=== PATIENT | male | born 1970 | race Caucasian/White ===

== ENCOUNTER 2018-07-09 07:59 | Outpatient (CLI) | payer BC ==
--- NOTE | 2018-07-09 09:25 | ULT ---
HEPATIC ULTRASOUND WITH DOPPLER: Date: 07/09/18 HISTORY: Hepatitis B. FINDINGS: The liver demonstrates increased echogenicity consistent with fatty infiltration, without focal mass or intrahepatic ductal dilatation. The spleen is normal measuring 10.5 cm in length. There is a small amount of sludge in the gallbladder without gallstones, gallbladder wall thickening, or pericholecys tic fluid. The common duct measures 5.0 mm in diameter. The pancreas, right kidney, and visualized po rtions of the abdominal aorta are normal. There is good flow and normal spectral waveforms in the hepatic, portal, and splenic vasculature. No free fluid is seen in the right upper quadrant. IMPRESSION: Fatty liver. No evidence of hepatic mass. POS: OFF
== END 2018-07-09 08:00 | disposition home or self-care (01) ==
LOC: SCSULT 07:59
PROVIDERS: ATTEND Internal Medicine Gastroenterology
DX: B18.1 Chronic viral hepatitis B without delta-agent (principal); K76.0 Fatty (change of) liver, not elsewhere classified
CPT/HCPCS: 76705

== ENCOUNTER 2020-09-04 11:33 | Outpatient (CLI) | payer BC ==
--- NOTE | 2020-09-04 13:07 | ULT ---
EXAM: US Hepatic Doppler PROVIDED CLINICAL HISTORY: History of hepatitis C COMPARISON: 07/09/2018 FINDINGS: The pancreas and abdominal aorta as well as IVC are obscured by overlying bowel gas. The liver appears enlarged, measuring about 20 cm in cranial caudal dimension at the right hepatic lo be. Changes of fatty infiltration are demonstrated without evidence for mass or intrahepatic biliary duct dilatation. The gallbladder demonstrates no stones, wall thickening or pericholecystic f luid. The common duct is nondilated. The spleen is not enlarged and demonstrates no focal abnormality. Color Doppler and spectral analysis of the splenic arterial, splenic venous, hepatic arterial, hepati c venous and hepatic portal waveforms demonstrates appropriate direction of flow. IMPRESSION: 1. Hepatomegaly and fatty infiltration of the liver. 2. Normal hepatic Doppler.
== END 2020-09-04 11:34 | disposition home or self-care (01) ==
LOC: SCSULT 11:33
PROVIDERS: ATTEND Internal Medicine Gastroenterology
DX: B18.1 Chronic viral hepatitis B without delta-agent (principal); D12.6 Benign neoplasm of colon, unspecified; K52.9 Noninfective gastroenteritis and colitis, unspecified; K76.0 Fatty (change of) liver, not elsewhere classified
CPT/HCPCS: 76705